=== PATIENT | male | born 1985 ===

== ENCOUNTER 2019-11-17 19:48 | Emergency (ER) | payer BC ==
--- NOTE | 2019-11-17 20:18 | EDM.PDOC ---
ED HPI GENERAL MEDICAL PROBLEM - General Chief Complaint: General Stated Complaint: WEAK Time Seen by Provider: 11/17/19 19:52 Source of Information: Reports: Patient History Limitations: Reports: No Limitations - History of Present Illness INITIAL COMMENTS - FREE TEXT/NARRATIVE: HISTORY OF PRESENT ILLNESS: Pt is a 34-year-old male reports he has been feeling unwell since . He was having "flulike symptoms" which resolved for approximately 3 days and then returned. States he has generalized weakness, fatigue, shortness of breath upon walking up a flight of stairs, cough and myalgias. Has tingling sensation to his palms and soles of his feet. Denies any fever. No sore throat. No rash. Denies any neck stiffness or recent travel. No blurred vision or slurred speech. No numbness or focal weakness. No abdominal pain, vomiting or diarrhea. Patient states he is on thyroid medication and has been compliant. Thyroid was last checked 1 month ago. Denies taking any other medications or [id number] products. No history of anemia. No history of STIs. Denies any urinary symptoms. No GI bleeding. No depression REVIEW OF SYSTEMS: Other than the symptoms associated with the present events, the following is reported with regard to recent health: General: (-) fever. HENT: (+) congestion. Respiratory: (+) cough. Cardiovascular: (-) chest pain. GI: (-) abdominal pain. : (-) urinary complaints. Musculoskeletal: (-) other aches or pains. Endocrine: (+) generalized weakness. Neurological: (-) localized weakness. Skin: (-) rash PAST MEDICAL HISTORY: reviewed as per nursing notes SOCIAL HISTORY: reviewed as per nursing notes, MEDICATIONS: Per nurse's note ALLERGIES: Per nurse's note, reviewed by me PHYSICAL EXAMINATION: GENERALIZED APPEARANCE: well developed, well nourished in no distress VITAL SIGNS: Per nurse's note, reviewed by me SKIN: Warm, dry; (-) cyanosis; (-) rash. HEAD: (-) scalp swelling, (-) tenderness. EYES: (-) conjunctival pallor, (-) scleral icterus. ENMT: (-) stridor; mucous membranes moist. no pharyngeal erythema. uvula midline. TM intact bilaterally without erythema. NECK: (-) tenderness, (-) stiffness, No meningismus. no palpable thyromegaly. CHEST AND RESPIRATORY: (-) rales, (-) rhonchi, (-) wheezes; breath sounds equal bilaterally. HEART AND CARDIOVASCULAR: (-) irregularity; (-) murmur, (-) gallop. ABDOMEN AND GI: Soft; (-) tenderness, (-) guarding, (-) rebound, (-) palpable masses, EXTREMITIES: (-) deformity, (-) edema. no calf tenderness or palpable cord. NEURO AND PSYCH: Alert. Cranial nerves grossly intact; strength symmetric. gait steady. 5/5+ strength UE and LE. NIHSS = 0. nml speech. no facial droop. sensation intact and equal bilaterally. 2+ DTR. oriented x 3. DIAGNOSTICS: Labs reviewed EKG: sr at 73 bpm. rad. nml intervals. t wave inversion in iii. borderline q in iii, avf. no st elevation or depression EMERGENCY DEPARTMENT COURSE AND TREATMENT/MDM: Patient's condition remained stable during Emergency Department evaluation. Based on history, physical exam , and diagnostic evaluation, the etiology of patients generalized weakness is unclear. The physical exam was unremarkable including a normal neurologic exam. Diagnostic workup was ordered and is pending. Based on this evaluation I believe there is low probability of neurologic, cardiac, hemorrhagic, metabolic or infectious etiology of the patients weakness. Prior to discharge the patient was observed to ambulate in the ED without difficulty. I felt that outpatient management with close followup by the patient's primary care provider in 1-2 days was appropriate. The patient's questions were answered, and discharge precautions and reasons to return to the ED were discussed. Hypertension noted, to follow up with pcp regarding this. Will need recheck and possibly started on medication if it does not improve. PLAN AND FOLLOW-UP: Patient received written and verbal instructions regarding this condition. Return to ED immediately with any new or worsening symptoms. Follow up to be arranged by patient with pcp in 1-2 days for further evaluation. Given discharge precautions. Patient expressed verbal understanding. bodyaches Pain Score (Numeric/FACES): 9 - Related Data Allergies Allergy/AdvReac Type Severity Reaction Status Date / Time No Known Allergies Allergy Verified 11/17/19 19:57 Home Meds: Home Meds Levothyroxine 25 mcg PO DAILY 11/17/19 [History] Past Medical History HEENT History: Reports: Impaired Vision Cardiovascular History: Reports: None Respiratory History: Reports: None Genitourinary History: Reports: None Musculoskeletal History: Reports: None Neurological History: Reports: None Psychiatric History: Reports: None Endocrine/Metabolic History: Reports: Hypothyroidism Hematologic History: Reports: None Immunologic History: Reports: None Oncologic (Cancer) History: Reports: None Dermatologic History: Reports: None - Past Surgical History Head Surgeries/Procedures: Reports: None HEENT Surgical History: Reports: None Cardiovascular Surgical History: Reports: None Respiratory Surgical History: Reports: None GI Surgical History: Reports: Appendectomy, Hernia, Abdominal, Other (See Below) Other GI Surgeries/Procedures: liver biposy Male Surgical History: Reports: None Endocrine Surgical History: Reports: None Neurological Surgical History: Reports: None Musculoskeletal Surgical History: Reports: None Oncologic Surgical History: Reports: None Dermatological Surgical History: Reports: None Social & Family History - Family History Family Medical History: Noncontributory - Tobacco Use Smoking Status *Q: Never Smoker Second Hand Smoke Exposure: No - Caffeine Use Caffeine Use: Reports: Energy Drinks, Soda - Recreational Drug Use Recreational Drug Use: No ED ROS GENERAL - Review of Systems Review Of Systems: See Below (see dictation) ED EXAM, GENERAL - Physical Exam Exam: See Below (see dictation) Course - Vital Signs Last Recorded V/S: Last Vital Signs Temp 98.4 F 11/17/19 19:58 Pulse 79 11/17/19 22:00 Resp 16 11/17/19 22:00 BP 149/91 H 11/17/19 22:00 Pulse Ox 96 11/17/19 22:00 - Orders/Labs/Meds Orders: Active Orders 24 hr Category Date Time Status EKG Documentation Completion [RC] STAT Care 11/17/19 20:11 Active Labs: Laboratory Tests 11/17/19 11/17/19 11/17/19 Range/Units 20:28 20:28 20:28 WBC 7.24 (4.0-11.0) K/uL RBC 5.29 (4.50-5.90) M/uL Hgb 16.5 (13.0-17.0) g/dL Hct 47.6 (38.0-50.0) % MCV 90.0 (80.0-98.0) fL MCH 31.2 (27.0-32.0) pg MCHC 34.7 (31.0-37.0) g/dL RDW Std Deviation 43.0 (28.0-62.0) fl RDW Coeff of [place] 13 (11.0-15.0) % Plt Count 206 (150-400) K/uL MPV 10.00 (7.40-12.00) fL Neut % (Auto) 60.2 (48.0-80.0) % Lymph % (Auto) 32.2 (16.0-40.0) % [place] % (Auto) 5.5 (0.0-15.0) % Eos % (Auto) 1.8 (0.0-7.0) % Baso % (Auto) 0.3 (0.0-1.5) % Neut # (Auto) 4.4 (1.4-5.7) K/uL Lymph # (Auto) 2.3 (0.6-2.4) K/uL [place] # (Auto) 0.4 (0.0-0.8) K/uL Eos # (Auto) 0.1 (0.0-0.7) K/uL Baso # (Auto) 0.0 (0.0-0.1) K/uL Nucleated RBC % 0.0 /100WBC Nucleated RBCs # 0 K/uL Sodium 142 (136-148) mmol/L Potassium 3.8 (3.5-5.1) mmol/L Chloride 103 (98-107) mmol/L Carbon Dioxide 27.2 (21.0-32.0) mmol/L BUN 11 (7.0-18.0) mg/dL Creatinine 1.5 H (0.8-1.3) mg/dL Est Cr Clr Drug Dosing 87.45 mL/min Estimated GFR (MDRD) 53.6 ml/min Glucose 89 (74-106) mg/dL Calcium 9.4 (8.5-10.1) mg/dL Magnesium 2.0 (1.8-2.4) mg/dL Total Bilirubin 0.4 (0.2-1.0) mg/dL AST 45 H (15-37) IU/L ALT 134 H (14-63) IU/L Alkaline Phosphatase 89 (46-116) U/L Total Protein 8.7 H (6.4-8.2) g/dL Albumin 4.1 (3.4-5.0) g/dL Globulin 4.6 H (2.6-4.0) g/dL Albumin/Globulin Ratio 0.9 (0.9-1.6) Free T4 0.96 (0.76-1.46) ng/dL TSH 3rd Generation 4.28 H (0.36-3.74) uIU/mL Departure - Departure Time of Disposition: 21:46 Disposition: Home, Self-Care 01 Condition: Good Clinical Impression: Fatigue, Hypertension, Generalized weakness - Discharge Information *PRESCRIPTION DRUG MONITORING PROGRAM REVIEWED*: Not Applicable *COPY OF PRESCRIPTION DRUG MONITORING REPORT IN PATIENT VICKIE: Not Applicable Instructions: Weakness, [id number], Hypertension, [id number] Referrals: Aspen Locke DO [Primary Care Provider] - 1 Day Forms: ED Department Discharge Additional Instructions: The following information is given to patients seen in the emergency department who are being discharged to home. This information is to outline your options for follow-up care. We provide all patients seen in our emergency department with a follow-up referral. The need for follow-up, as well as the timing and circumstances, are variable depending upon the specifics of your emergency department visit. If you don't have a primary care physician on staff, we will provide you with a referral. We always advise you to contact your personal physician following an emergency department visit to inform them of the circumstance of the visit and for follow-up with them and/or the need for any referrals to a consulting specialist. The emergency department will also refer you to a specialist when appropriate. This referral assures that you have the opportunity for follow-up care with a specialist. All of these measure are taken in an effort to provide you with optimal care, which includes your follow-up. Under all circumstances we always encourage you to contact your private physician who remains a resource for coordinating your care. When calling for follow-up care, please make the office aware that this follow-up is from your recent emergency room visit. If for any reason you are refused follow-up, please contact the [facility] Emergency Department at and asked to speak to the emergency department charge nurse. Sepsis Event Note - Evaluation Sepsis Screening Result: No Definite Risk - Focused Exam Vital Signs: Vital Signs Temp Pulse Resp BP Pulse Ox 11/17/19 22:00 79 16 149/91 H 96 11/17/19 19:58 98.4 F 80 18 167/95 H 97 Date Exam was Performed: 11/18/19 Time Exam was Performed: 03:06 - My Orders Last 24 Hours: My Active Orders 11/17/19 20:11 EKG Documentation Completion [RC] STAT - Assessment/Plan Last 24 Hours: My Active Orders 11/17/19 20:11 EKG Documentation Completion [RC] STAT
[2019-11-17 21:03] LABS: CARBON DIOXIDE,CO2 27.2 mmol/L (21.0-32.0); POTASSIUM,K 3.8 mmol/L (3.5-5.1)
--- NOTE | 2019-11-17 21:13 | CR ---
Indication: Chest pain and fatigue. Technique: Chest 2 views Comparison: None Findings: Cardiovascular and mediastinum: Heart size and vasculature are normal in caliber and appearance. Lungs and pleural spaces: Lungs are clear. No sign of infiltrate or mass. No sign of pleural effusion. No pneumothorax. Bones and soft tissues: No significant findings. Impression: Negative chest. Dictated by Hany Livingston MD @ Nov 17 2019 9:09PM Signed by Dr. Hany Livingston @ Nov 17 2019 9:12PM
== END 2019-11-17 22:00 | disposition home or self-care (01) ==
LOC: MW.ED 19:48
DX: R53.1 Weakness (principal); I10 Essential (primary) hypertension; E03.9 Hypothyroidism, unspecified; Z90.49 Acquired absence of other specified parts of digestive tract; Z79.899 Other long term (current) drug therapy
CPT/HCPCS: 71046; 71046-26; 80053; 83735; 84439; 84443; 85025; 93005; 99283; 99285-25